=== PATIENT | male | born 2005 | race Caucasian/White ===

== ENCOUNTER 2023-12-21 21:57 | Emergency (ER) | payer BC ==
[~2023-12-21] VITALS: Ht 170.2 cm; Wt 63.6 kg
[2023-12-21 22:15] VITALS: TEMP 98.5
[2023-12-22] MEDS ORDERED: HYDR-3965 PO (02:39)
[2023-12-22] MEDS: ketorolac trometh inj. 60 MG/2 ML VIAL IM ONE (03:08)
[2023-12-22] MEDS: ondansetron 4mg rapidly disintigrating tab PO ONE (03:08)
[2023-12-22] MEDS: HYDROcodone/acetaminophen 5mg/325mg tablet PO ONE (03:08)
[2023-12-22 03:17] VITALS: BP 127/81; PULSE 85; RESP 14; O2SAT 100
== END 2023-12-22 03:20 | disposition home or self-care (01) ==
LOC: ER 21:57
DX: M79.642 Pain in left hand (principal); Z79.899 Other long term (current) drug therapy
CPT/HCPCS: 73130; 96372; 99283; J1885